=== PATIENT | female | born 2000 | race Caucasian/White ===

== ENCOUNTER 2022-05-06 08:29 | Day surgery (SDC) | payer OTHER ==
[~2022-05-06] VITALS: Ht 162.6 cm; Wt 59.5 kg
[2022-05-06 08:50] VITALS: BP 112/81; PULSE 103; TEMP 97.3
[2022-05-06] MEDS ORDERED: XULANE1 TDM TD (08:53)
[2022-05-06] MEDS ORDERED: ALDACTONE 100M100 MG PO (08:54)
[2022-05-06] MEDS ORDERED: ALLEGRA 180MG180 MG PO (08:55)
[2022-05-06] MEDS ORDERED: MOTRIN 200200 MG/TAB PO (08:55)
[2022-05-06 10:00] VITALS: BP 110/75; PULSE 106; TEMP 96.9
--- NOTE | 2022-05-06 10:13 | NUR ---
1000 - PT arrives from procedure and was settled by Elaine AGUILA. Then verbal report obtained. PT provided snack and drink; denies pain and nausea. Call haas within reach. remains present. is speaking w/ PT.
[2022-05-06 10:15] VITALS: BP 106/74; PULSE 84
--- NOTE | 2022-05-06 10:25 | NUR ---
1015 - VSS. PT has finished snack and drink; continues to deny pain and nasuea. Expressed desire to be discharged; call haas remains within reach. Visitor remains present.
[2022-05-06 10:30] VITALS: BP 112/84; PULSE 79
--- NOTE | 2022-05-06 10:43 | NUR ---
1030 - VSS. IV discontinued. Catheter tip intact. Pressure bandage applied. NO redness or swelling noted. DC instructions and educational material revewed w/ PT who verbalized understanding and signed the related paperwork. Questions answered to PT satisfaction. PT refused RN assistance changing into personal clothes; call haas within reach and visitor remains present.
--- NOTE | 2022-05-06 10:53 | NUR ---
1050 - PT dismissed from endo via wheelchair to the PT entrence by Elayne AGUILA. PT has DC packet and personal belonings; PT was transferred into the care of her , who is driving private car.
== END 2022-05-06 10:50 | disposition home or self-care (01) ==
LOC: SDCO 08:29
DX: K29.50 Unspecified chronic gastritis without bleeding (principal); R23.4 Changes in skin texture; K59.00 Constipation, unspecified; R19.7 Diarrhea, unspecified; K57.30 Diverticulosis of large intestine without perforation or abscess without bleeding; K64.0 First degree hemorrhoids; K62.89 Other specified diseases of anus and rectum; K60.0 Acute anal fissure; K92.1 Melena
CPT/HCPCS: J2704; J7120